=== PATIENT | female | born 1995 | race African-American/Black ===

== ENCOUNTER 2017-08-06 21:15 | Emergency (ER) | payer OTHER ==
[~2017-08-06] VITALS: Ht 157.5 cm; Wt 100.3 kg
[2017-08-06 21:30] VITALS: Ht 157.5 cm; Wt 100.3 kg
[2017-08-06 23:47] VITALS: BP 132/74
== END 2017-08-06 23:47 | disposition home or self-care (01) ==
LOC: ED 21:15
DX: S00.03XA Contusion of scalp, initial encounter (principal); W22.8XXA Striking against or struck by other objects, initial encounter; Y93.89 Activity, other specified; Y92.89 Other specified places as the place of occurrence of the external cause; Y99.8 Other external cause status